=== PATIENT | male | born 1995 | race Caucasian/White ===

== ENCOUNTER 2020-03-21 10:40 | Outpatient (REF) | payer SELFPAY ==
[2020-03-22 22:10] LABS: COVID-19 RT-PCR UVMMC Result Negative (Negative)
== END 2020-03-21 11:00 ==
LOC: LBN 10:40
PROVIDERS: Visit Provider Pediatrics
DX: Z11.59 Encounter for screening for other viral diseases (principal)
CPT/HCPCS: U0003

== ENCOUNTER 2021-02-25 09:22 | Outpatient (CLI) | payer SELFPAY ==
[2021-02-26 02:15] LABS: COVID-19 RT-PCR UVMMC Result Negative (Negative)
== END 2021-02-25 09:23 | disposition home or self-care (01) ==
LOC: LBO 09:22
PROVIDERS: Visit Provider Pediatrics
DX: Z20.822 Contact with and (suspected) exposure to COVID-19 (principal)
CPT/HCPCS: U0003